=== PATIENT | female | born 1995 | race American Indian/Alaskan Native ===

== ENCOUNTER 2018-07-26 11:06 | Emergency (ER) | payer MEDICAID, OTHER ==
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
[2018-07-26] MEDS ORDERED: NORCO 5/325 PO ONE (12:48)
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
[2018-07-26 14:58] VITALS: BP 103/68
== END 2018-07-26 15:12 | disposition home or self-care (01) ==
LOC: ED 11:06
DX: S09.90XA Unspecified injury of head, initial encounter (principal); M25.462 Effusion, left knee; V89.2XXA Person injured in unspecified motor-vehicle accident, traffic, initial encounter; Y93.89 Activity, other specified; Y99.8 Other external cause status; Y92.410 Unspecified street and highway as the place of occurrence of the external cause
CPT/HCPCS: 70450